=== PATIENT | female | born 1965 | race Caucasian/White ===

== ENCOUNTER 2016-12-13 21:12 | Emergency (ER) | payer BC ==
[~2016-12-13] VITALS: Ht 160 cm; Wt 92.0 kg
[2016-12-13 21:22] VITALS: BP 151/91; PULSE 104; RESP 18; TEMP 98.5; O2SAT 97
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
[2016-12-13 22:11] LABS: AUTOMATED NEUTROPHIL # 6.6 TH/MM3 (1.8-7.7); BASOPHIL # 0.1 TH/MM3 (0-0.2); BASOPHIL % 0.9 % (0.0-2.0); EOSINOPHIL # 0.2 TH/MM3 (0-0.4); EOSINOPHIL % 1.9 % (0.0-4.0); HEMATOCRIT 42.7 % (35.0-46.0); HEMO FLAGS DIFF FINAL; LYMPH % 31.7 % (9.0-44.0); LYMPHOCYTE # 3.4 TH/MM3 (1.0-4.8); MEAN CELL VOLUME 96.4 FL (80.0-100.0); MEAN CORPUSCULAR HEMOGLOBIN 33.9 PG (27.0-34.0); MEAN CORPUSCULAR HGB CONC 35.1 % (32.0-36.0); MONO % 3.9 % (0.0-8.0); NEUT % 61.6 % (16.0-70.0); PLATELET COUNT 307 TH/MM3 (150-450); RED BLOOD COUNT 4.43 MIL/MM3 (4.00-5.30); RED CELL DISTRIBUTION WIDTH 13.4 % (11.6-17.2); WHITE BLOOD COUNT 10.7 TH/MM3 (4.0-11.0)
[2016-12-13 22:36] VITALS: BP 136/89; PULSE 92; RESP 18; O2SAT 96
[2016-12-13 22:41] LABS: ALT (GPT) 103 U/L (10-53); ANION GAP 14 MEQ/L (5-15); AST (GOT) 56 U/L (15-37); BICARBONATE 20.9 MEQ/L (21.0-32.0); BLOOD UREA NITROGEN 10 MG/DL (7-18); CHLORIDE 111 MEQ/L (98-107); GLOMERULAR FILTRATION RATE 82 ML/MIN (>89); POTASSIUM 3.8 MEQ/L (3.5-5.1); SODIUM (NA) 146 MEQ/L (136-145)
[2016-12-13 22:43] LABS: ACETAMINOPHEN LESS THAN 2.0 MCG/ML (10.0-30.0); ALKALINE PHOSPHATASE 100 U/L (45-117); TOTAL BILIRUBIN ADULT 0.2 MG/DL (0.2-1.0)
[2016-12-13 22:55] LABS: ALCOHOL 138 MG/DL (0-5)
[2016-12-13] MEDS ORDERED: ONDANSETRON ODT 4 MG TAB PO ONE (23:00)
[2016-12-14 00:37] VITALS: BP 143/89; PULSE 80; RESP 18; O2SAT 97
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
[2016-12-14 01:36] LABS: INDIRECT BILIRUBIN 0.1 MG/DL (0.0-0.8); TOTAL BILIRUBIN ADULT 0.2 MG/DL (0.2-1.0)
[2016-12-14 02:55] VITALS: BP 114/57; PULSE 84; RESP 16; O2SAT 98
[2016-12-14 06:00] VITALS: BP 107/63; PULSE 73; RESP 18; O2SAT 99
[2016-12-14 06:37] VITALS: BP 159/91; PULSE 79; RESP 18; O2SAT 96
[2016-12-14 10:00] VITALS: BP 114/58; PULSE 74; RESP 18
--- NOTE | 2016-12-14 12:40 | PD ---
History of Present Illness Chief Complaint: Psychiatric Symptoms Time Seen by Provider: 12:30 Travel History International Travel<30 Days: No Contact w/Intl Traveler<30days: No Known affected area: No Legal Status Legal Status: Ahuja Act Ahuja Act Signed By: Sukhdev MOCK--Ofc. Sky History of Present Illness: This is a 51-year-old female who was brought in under a Ahuja act for suicidal behavior while intoxicated. She was Ahuja acted by law enforcement, who describe her as hysterically crying, going through a divorce with her , attempting to take care of her elderly mother and her daughter. The Ahuja act states the patient wanted to "checkout". The patient further told one of the officers she wanted to kill herself and attempted to overdose on her mother's medication. Patient's measured alcohol level last evening was 138. At the present time, the patient is calm, pleasant and cooperative. She is distressed with her room behavior. She denies she and her are going to get but does state they are going for family counseling. She also admits to the stressors in her family. She is verbally fei for safety and competent to do so. Her cognition is intact and she demonstrates no psychotic symptoms. She denies suicidal or homicidal ideation, plan or intent at this time. PFSH Past Medical History Medical History: Denies Significant Hx Diminished Hearing: No Immunizations Current: Yes Tetanus Vaccination: Never Vaccinated Influenza Vaccination: No ?: Unknown Menopausal: Yes : 3 Para: 3 Tubal Ligation: Yes Psychiatric History Psychiatric History Hx Psychiatric Treatment: anxiety disorder History of Inpatient Treatment: No Guns or firearms in home: No Social History Hx Alcohol Use: Yes ("1-2 DRINKS EVERY OTHER DAY") Hx Tobacco Use: No Hx Substance Use: Yes (ETOH 2x/week-last use yesterday 2 drinks; marajuana once week) Substance Use Type: Alcohol, Marijuana Hx of Substance Use Treatment: No Allergies-Medications (Allergen,Severity, Reaction): Coded Allergies: Tetanus Vaccines and Toxoid (Verified Allergy, Severe, Swelling, 12/13/16) lavender (Lavandula angustifolia) (Verified Allergy, Unknown, 12/13/16) Reported Meds & Prescriptions Reported Meds & Active Scripts Active No Active Prescriptions or Reported Medications Review of Systems Except as stated in HPI: all other systems reviewed are Neg Exam Alert: Yes Spencer: Person, Place, Date, Situation Mood: Calm Affect: Appropriate Speech: Clear, Logical Eye Contact: Normal Memory Intact: Immediate, Recent, Remote Insight/Judgement Adequate MDM Medical Decision Making Medical Record Reviewed: Yes Assessment/Plan This physician spoke with the patient's nurse and reviewed her medical record. At this time, the patient does not meet Ahuja act criteria and does not meet criteria for involuntary psychiatric hospitalization. She is willing to seek treatment on an outpatient basis and states her family will accompany her for this treatment. She was advised to discontinue alcohol use. Orders Complete Blood Count With Diff (12/13/16 21:52) Comprehensive Metabolic Panel (12/13/16 21:52) Psych Screen (12/13/16 21:52) Drug Screen, Random Urine (12/13/16 21:52) Alcohol (Ethanol) (12/13/16 21:52) Salicylates (Aspirin) (12/13/16 21:52) Tylenol (Acetaminophen) (12/13/16 21:52) Call Poison Control (12/13/16 22:46) Ondansetron Odt (Zofran Odt) (12/13/16 23:00) Tylenol (Acetaminophen) (12/13/16 23:21) Hepatic Functional Panel (12/14/16 00:56) Electrocardiogram (12/14/16 00:12) Diet Regular Basic (12/14/16 Breakfast) Diet Regular Basic (12/14/16 Lunch) Results Vital Signs Date Time Temp Pulse Resp B/P Pulse Ox O2 Delivery O2 Flow Rate FiO2 12/14/16 10:00 74 18 114/58 Room Air 12/14/16 06:37 79 18 159/91 96 Room Air 12/14/16 06:00 73 18 107/63 99 Room Air 12/14/16 02:55 84 16 114/57 98 Room Air 12/14/16 00:37 80 18 143/89 97 Room Air 12/13/16 22:36 92 18 136/89 96 Room Air 12/13/16 21:22 98.5 104 18 151/91 97 Laboratory Tests Test 12/13/16 12/13/16 12/14/16 12/14/16 22:00 23:35 01:04 01:35 White Blood Count 10.7 Red Blood Count 4.43 Hemoglobin 15.0 Hematocrit 42.7 Mean Corpuscular Volume 96.4 Mean Corpuscular Hemoglobin 33.9 Mean Corpuscular Hemoglobin 35.1 Concent Red Cell Distribution Width 13.4 Platelet Count 307 Mean Platelet Volume 7.1 Neutrophils (%) (Auto) 61.6 Lymphocytes (%) (Auto) 31.7 Monocytes (%) (Auto) 3.9 Eosinophils (%) (Auto) 1.9 Basophils (%) (Auto) 0.9 Neutrophils # (Auto) 6.6 Lymphocytes # (Auto) 3.4 Monocytes # (Auto) 0.4 Eosinophils # (Auto) 0.2 Basophils # (Auto) 0.1 CBC Comment DIFF FINAL Differential Comment Sodium Level 146 Potassium Level 3.8 Chloride Level 111 Carbon Dioxide Level 20.9 Anion Gap 14 Blood Urea Nitrogen 10 Creatinine 0.74 Estimat Glomerular Filtration 82 Rate Random Glucose 118 Calcium Level 9.4 Total Bilirubin 0.2 0.2 Aspartate Amino Transf 56 43 (AST/SGOT) Alanine Aminotransferase 103 90 (ALT/SGPT) Alkaline Phosphatase 100 88 Total Protein 7.4 6.8 Albumin 3.7 3.3 Salicylates Level 2.0 Acetaminophen Level LESS THAN 2.0 LESS THAN 2.0 Ethyl Alcohol Level 138 Direct Bilirubin 0.1 Indirect Bilirubin 0.1 Urine Opiates Screen NEG Urine Barbiturates Screen NEG Urine Amphetamines Screen NEG Urine Benzodiazepines Screen NEG Urine Cocaine Screen NEG Urine Cannabinoids Screen POS Diagnosis Primary Impression: Adjustment disorder with mixed disturbance of emotions and conduct Additional Impression: Alcohol abuse Prescriptions No Active Prescriptions or Reported Meds Problem Qualifiers Gualberto Knott MD Dec 14, 2016 12:40
--- NOTE | 2016-12-14 14:35 | EKG ---
Date Performed: 12/14/2016 Time Performed: 00:12:35 PTAGE: 51 years EKG: Sinus rhythm LOW QRS VOLTAGE IN PRECORDIAL LEADS BORDERLINE ECG NO PREVIOUS TRACING DOCTOR: Ascencion Garcia Interpretating Date/Time 12/14/2016 14:33:57
== END 2016-12-14 13:53 | disposition home or self-care (01) ==
LOC: NEPD 21:12 → NEPJ 12-14 13:53
DX: T40.2X2A Poisoning by other opioids, intentional self-harm, initial encounter (principal); F43.25 Adjustment disorder with mixed disturbance of emotions and conduct; F41.9 Anxiety disorder, unspecified; F10.129 Alcohol abuse with intoxication, unspecified
CPT/HCPCS: 80053; 80076; 80307; 85025; 93005; 99284